=== PATIENT | female | born 1950 | race Caucasian/White ===

== ENCOUNTER → 2024-02-10 | Outpatient (CLI) | payer MEDICARE, OTHER ==
[~2024-02-10] MED LIST: Advil200 M1; DAILY MULTIPLE1 EACH; Flonase 0.05% N16 GM; LISI20; NITR100CA PO; PROLIA60 MG/1 ML
== END | disposition home or self-care (01) ==
LOC: LAB 12:42 → LAB SHORT 12:42
DX: L76.82 Other postprocedural complications of skin and subcutaneous tissue (principal)
CPT/HCPCS: 87070; 87075; 87205